=== PATIENT | female | born 1975 | race Caucasian/White ===

== ENCOUNTER 2019-06-27 05:33 | Emergency (ER) | payer SELFPAY ==
--- NOTE | 2019-06-27 05:51 | ED.PDOC ---
History of Present Illness - General Chief Complaint: Respiratory Problem Stated Complaint: coughing, congestion, short of breath Time Seen by Provider: 06/27/19 05:48 Source: patient Additional Information: 44yo F presents for evaluation of cough. The patient reports symptoms started 3-4 days ago and have progressively worsened. Tonight she has had a persistent dry cough that has been disruptive to sleep. She reports past hx of similar symptoms with bronchitis and pneumonia. She is a smoker, active. No other reported issues. - History of Present Illness Allergies/Adverse Reactions: Allergies NO KNOWN ALLERGY Allergy (Verified 08/20/15 22:29) Home Medications: Ambulatory Orders Azithromycin Tab [Zithromax Tab] 250 mg PO QD #6 tab 11/12/14 Benzonatate Perles [Tessalon Perles] 100 mg PO TID PRN #30 cap 11/12/14 Guaifenesin-Codeine [Cheratussin AC 100-10 mg/5Ml] 10 ml PO Q6HR PRN #100 ml 11/12/14 Azithromycin [Zithromax Z-Tarun] 1 ea PO DAILY #1 pack 08/21/15 Promethazine W/Codeine Syr [Phenergan With Codeine Syrup] 5 ml PO Q4H PRN #120 ml 08/21/15 Albuterol Sulfate [Albuterol Sulfate Hfa] 108 mcg IN QID #1 aer 06/27/19 Azithromycin [Zithromax Z-Tarun] 250 mg PO ONCE #1 tab 06/27/19 Guaifenesin-Codeine [Codeine/Guaifenesin 100-10 mg/5Ml] 5 ml PO QID #100 ml 06/27/19 predniSONE 20 mg PO ONCE #12 tab 06/27/19 Review of Systems - Review of Systems Constitutional: Denies: chills, fever EENTM: States: nose congestion. Denies: blurred vision, throat pain Respiratory: States: cough, wheezing. Denies: short of breath Cardiology: States: chest pain - With cough. Denies: palpitations Gastrointestinal/Abdominal: Denies: abdominal pain, nausea, vomiting Musculoskeletal: Denies: back pain, neck pain Skin: Denies: change in color, rash Neurological: Denies: headache, numbness, paresthesia, weakness Endocrine: Denies: increased thirst, unexplained weight loss Past Medical History (General) - Patient Medical History Hx Stroke: No Hx Asthma: Yes Hx Congestive Heart Failure: No Hx Diabetes: No Hx MRSA: No - Vaccination History Hx Tetanus, Diphtheria Vaccination: No Hx Influenza Vaccination: No Hx Pneumococcal Vaccination: No - Social History Hx Tobacco Use: Yes Hx Chewing Tobacco Use: No Hx Alcohol Use: No Hx Substance Use: No Hx Substance Use Treatment: No Hx Depression: No Hx Physical Abuse: No Hx Emotional Abuse: No Hx Suspected Abuse: No - Female History Patient : No Family Medical History - Family History Father Family History: No Known Name: Adopted; does not know biological parents Living Status: Unknown Physical Exam - Physical Exam General Appearance: Alert, No apparent distress Eye Exam: bilateral normal ENT Exam: pharynx normal, nasal congestion Neck: non-tender, full range of motion, supple Respiratory: no respiratory distress, wheezing, other - Frequent dry cough Cardiovascular/Chest: normal peripheral pulses, regular rate, rhythm, no edema Gastrointestinal/Abdominal: non tender, soft Extremity: normal range of motion, non-tender Neurologic: no motor/sensory deficits, alert, oriented x 3 Skin Exam: normal color, warm/dry Progress - Progress Progress: 06/27/19 06:48 The patient feels improved at this time. The patient likely has cough related to bronchitis. She is an active smoker and at high risk for bacterial infection as well. Overall, her symptoms are well tolerated and improved. No acute CXR findings. Results discussed. The patient is comfortable with the plan for discharge and close outpatient follow up as needed. Return warnings discussed. It was a pleasure to care for this patient today. - EKG/XRAY/CT Xray Comments: CXR: No acute findings. See formal read. Departure - Departure Clinical Impression: Cough in adult Upper respiratory infection Qualifiers: URI type: unspecified URI Qualified Code(s): J06.9 - Acute upper respiratory infection, unspecified Time of Disposition: 06:36 Disposition: Discharge to Home or Self Care Condition: Good Departure Forms: ED Discharge - Pt. Copy, Patient Portal Self Enrollment Instructions: Acute Bronchitis, Adult (DC) Prescriptions: Albuterol Sulfate [Albuterol Sulfate Hfa] 108 mcg IN QID #1 aer Azithromycin [Zithromax Z-Tarun] 250 mg PO ONCE #1 tab Guaifenesin-Codeine [Codeine/Guaifenesin 100-10 mg/5Ml] 5 ml PO QID #100 ml predniSONE 20 mg PO ONCE #12 tab Home Medications: Ambulatory Orders Azithromycin Tab [Zithromax Tab] 250 mg PO QD #6 tab 11/12/14 Benzonatate Perles [Tessalon Perles] 100 mg PO TID PRN #30 cap 11/12/14 Guaifenesin-Codeine [Cheratussin AC 100-10 mg/5Ml] 10 ml PO Q6HR PRN #100 ml 11/12/14 Azithromycin [Zithromax Z-Tarun] 1 ea PO DAILY #1 pack 08/21/15 Promethazine W/Codeine Syr [Phenergan With Codeine Syrup] 5 ml PO Q4H PRN #120 ml 08/21/15 Albuterol Sulfate [Albuterol Sulfate Hfa] 108 mcg IN QID #1 aer 06/27/19 Azithromycin [Zithromax Z-Tarun] 250 mg PO ONCE #1 tab 06/27/19 Guaifenesin-Codeine [Codeine/Guaifenesin 100-10 mg/5Ml] 5 ml PO QID #100 ml 06/27/19 predniSONE 20 mg PO ONCE #12 tab 06/27/19 Additional Instructions: Please follow up with your primary doctor as needed. Comments: Krzysztof Mcelroy, Physician #[id number]
[2019-06-27] MEDS ORDERED: predniSONE 20 MG TAB PO ONE (05:52)
[2019-06-27] MEDS ORDERED: KETOROLAC TROMETHAMINE INJ 30 MG/ML VIAL IM ONE (05:52)
[2019-06-27] MEDS ORDERED: guaiFENesin/DEXTROMETH SYRUP 5 ML UD PO ONE (05:52)
[2019-06-27] MEDS ORDERED: IPRATROPIUM/ALBUTEROL 3 ML VIAL NEB ONE (05:52)
--- NOTE | 2019-06-27 06:38 | RAD ---
EXAM DESCRIPTION: Chest,2 Views CLINICAL HISTORY: cough COMPARISON: None TECHNIQUE: PA/lateral FINDINGS: There is no acute appearing cardiac or pulmonary abnormality. Heart size is normal with normal pulmonary vascularity. No pleural effusion or pneumothorax. Lungs are clear with no consolidating infiltrate. Lateral view shows intact sternum and T-spine. IMPRESSION: No acute process is identified in the chest. Electronically signed by: Kwabena Kathleen MD 06/27/2019 6:37 AM CDT
[2019-06-27 06:53] VITALS: BP 166/60; TEMP 98.3; O2SAT 94
== END 2019-06-27 06:50 | disposition home or self-care (01) ==
LOC: ER 05:33
DX: J06.9 Acute upper respiratory infection, unspecified (principal); J45.909 Unspecified asthma, uncomplicated; F17.200 Nicotine dependence, unspecified, uncomplicated; Z79.899 Other long term (current) drug therapy; Z87.01 Personal history of pneumonia (recurrent)
CPT/HCPCS: 71046; 94640; J1885; J7512; J7620

== ENCOUNTER 2019-10-21 23:02 | Emergency (ER) | payer SELFPAY ==
[2019-10-21] MEDS ORDERED: ALBUTEROL SULFATE NEBS (ED DISPENSE) 2.5 MG/3 ML VIAL NEB PRN (23:32)
[2019-10-21] MEDS ORDERED: predniSONE 10 MG TAB PO ONE (23:32)
[2019-10-21] MEDS ORDERED: BENZONATATE PERLES 100 MG CAP PO ONE (23:33)
--- NOTE | 2019-10-21 23:36 | ED.PDOC ---
History of Present Illness - General Time Seen by Provider: 10/21/19 23:31 Additional Information: Patient is a 44-year-old female who presents to the ED with chief complaint of cough for the past 3 days. Patient indicates that she is a smoker and this is her typical smoker's cough. She says that over the past day the cough has become productive and she is unable to sleep because it keeps her up at night. Patient denies nausea, vomiting, fever, chills, chest pain. Patient has no other concerns at this time. - History of Present Illness Allergies/Adverse Reactions: Allergies NO KNOWN ALLERGY Allergy (Verified 08/20/15 22:29) Home Medications: Ambulatory Orders Azithromycin Tab [Zithromax Tab] 250 mg PO QD #6 tab 11/12/14 Benzonatate Perles [Tessalon Perles] 100 mg PO TID PRN #30 cap 11/12/14 Guaifenesin-Codeine [Cheratussin AC 100-10 mg/5Ml] 10 ml PO Q6HR PRN #100 ml 11/12/14 Azithromycin [Zithromax Z-Tarun] 1 ea PO DAILY #1 pack 08/21/15 Promethazine W/Codeine Syr [Phenergan With Codeine Syrup] 5 ml PO Q4H PRN #120 ml 08/21/15 Albuterol Sulfate [Albuterol Sulfate Hfa] 108 mcg IN QID #1 aer 06/27/19 Azithromycin [Zithromax Z-Tarun] 250 mg PO ONCE #1 tab 06/27/19 Guaifenesin-Codeine [Codeine/Guaifenesin 100-10 mg/5Ml] 5 ml PO QID #100 ml 06/27/19 predniSONE 20 mg PO ONCE #12 tab 06/27/19 Albuterol Inhaler [Ventolin Hfa Inhaler] 2 puff INH Q4H PRN #1 inh 10/22/19 Azithromycin [Zithromax Z-Tarun] 250 mg PO DAILY #6 tab 10/22/19 Prednisone 40 mg PO DAILY #10 tab 10/22/19 Review of Systems - Review of Systems Constitutional: Denies: chills, fever EENTM: States: no symptoms reported Respiratory: States: see HPI, cough. Denies: orthopnea, short of breath, wheezing Cardiology: States: no symptoms reported. Denies: chest pain, palpitations Gastrointestinal/Abdominal: States: no symptoms reported. Denies: abdominal pain, nausea, vomiting Genitourinary: States: no symptoms reported Musculoskeletal: States: no symptoms reported. Denies: muscle pain Skin: States: no symptoms reported Past Medical History (General) - Patient Medical History Hx Seizures: No Hx Stroke: No Hx Dementia: No Hx Asthma: Yes Hx of COPD: No Hx Cardiac Disorders: No Hx Congestive Heart Failure: No Hx Pacemaker: No Hx Hypertension: No Hx Thyroid Disease: No Hx Diabetes: No Hx Gastroesophageal Reflux: No Hx Renal Disease: No Hx Cancer: No Hx of HIV: No Hx Hepatitis C: No Hx MRSA: No - Vaccination History Hx Tetanus, Diphtheria Vaccination: No Hx Influenza Vaccination: No Hx Pneumococcal Vaccination: No - Social History Hx Tobacco Use: Yes Hx Chewing Tobacco Use: No Hx Alcohol Use: No Hx Substance Use: No Hx Substance Use Treatment: No Hx Depression: No Hx Physical Abuse: No Hx Emotional Abuse: No Hx Suspected Abuse: No - Female History Patient : No Family Medical History - Family History Father Family History: No Known Name: Adopted; does not know biological parents Living Status: Unknown Physical Exam - Physical Exam General Appearance: Alert, Comfortable, No apparent distress, Well Developed, Well Nourished, Other - Patient has a frequent dry cough ENT Exam: normal ENT inspection Neck: non-tender Respiratory: chest non-tender, lungs clear, normal breath sounds, no respiratory distress, no accessory muscle use Cardiovascular/Chest: regular rate, rhythm, no edema, no gallop, no JVD, no murmur Gastrointestinal/Abdominal: normal bowel sounds, non tender, soft Extremity: normal range of motion, non-tender 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 10/21/19 23:58 Patient's chest x-ray is clear and clinically patient with COPD exacerbation. I will discharge with albuterol, prednisone, and Z-Tarun and patient to rest and follow-up with her PCP. Vital signs stable, patient is NAD and looks clinically well and I believe is safe for discharge with outpatient follow-up. Follow-up instructions, discharge instructions and return to ED precautions discussed with patient. Patient voices understanding and willingness to comply with instructions. All laboratory and/or radiographic results have been discussed with the patient, and all questions answered. Patient is happy with plan. Departure - Departure Clinical Impression: COPD exacerbation Time of Disposition: 23:59 Disposition: Discharge to Home or Self Care Condition: Fair Instructions: Exacerbation of COPD (DC) Referrals: ZOHREH MENG MD [Active Staff] - 1 Week Prescriptions: Albuterol Inhaler [Ventolin Hfa Inhaler] 2 puff INH Q4H PRN #1 inh PRN Reason: Shortness Of Breath/Wheezing Azithromycin [Zithromax Z-Tarun] 250 mg PO DAILY #6 tab Prednisone 40 mg PO DAILY #10 tab Home Medications: Ambulatory Orders Azithromycin Tab [Zithromax Tab] 250 mg PO QD #6 tab 11/12/14 Benzonatate Perles [Tessalon Perles] 100 mg PO TID PRN #30 cap 11/12/14 Guaifenesin-Codeine [Cheratussin AC 100-10 mg/5Ml] 10 ml PO Q6HR PRN #100 ml 11/12/14 Azithromycin [Zithromax Z-Tarun] 1 ea PO DAILY #1 pack 08/21/15 Promethazine W/Codeine Syr [Phenergan With Codeine Syrup] 5 ml PO Q4H PRN #120 ml 08/21/15 Albuterol Sulfate [Albuterol Sulfate Hfa] 108 mcg IN QID #1 aer 06/27/19 Azithromycin [Zithromax Z-Tarun] 250 mg PO ONCE #1 tab 06/27/19 Guaifenesin-Codeine [Codeine/Guaifenesin 100-10 mg/5Ml] 5 ml PO QID #100 ml predniSONE 20 mg PO ONCE #12 tab 06/27/19 Albuterol Inhaler [Ventolin Hfa Inhaler] 2 puff INH Q4H PRN #1 inh 10/22/19 Azithromycin [Zithromax Z-Tarun] 250 mg PO DAILY #6 tab 10/22/19 Prednisone 40 mg PO DAILY #10 tab 10/22/19
[2019-10-21] MEDS ORDERED: ALBUTEROL SULFATE 2.5 MG/3 ML VIAL NEB ONE (23:51)
--- NOTE | 2019-10-21 23:55 | RAD ---
EXAM DESCRIPTION: Chest,2 Views CLINICAL HISTORY: 44 years Female cough COMPARISON: 06/27/2019 FINDINGS: The cardiomediastinal silhouette appears unremarkable. No consolidating infiltrates or pleural effusions. No pneumothorax. IMPRESSION: No acute abnormality is identified. Electronically signed by: Rosana Awad MD 10/21/2019 11:53 PM [employer]
[2019-10-22 00:12] VITALS: BP 142/80; TEMP 97.6; O2SAT 95
== END 2019-10-22 00:14 | disposition home or self-care (01) ==
LOC: ER 23:02
DX: J44.1 Chronic obstructive pulmonary disease with (acute) exacerbation (principal); F17.200 Nicotine dependence, unspecified, uncomplicated; Z79.899 Other long term (current) drug therapy
CPT/HCPCS: 71046; 87502; 94640; J7512; J7611